=== PATIENT | female | born 1975 | race Caucasian/White ===

== ENCOUNTER 2017-11-20 11:11 | Emergency (ER) | payer MEDICARE, MEDICAID ==
[~2017-11-20] VITALS: Ht 157.5 cm; Wt 73.6 kg
[2017-11-20 11:40] VITALS: Ht 157.5 cm; Wt 73.6 kg
[2017-11-20] MEDS ORDERED: VOLTAREN75 MG PO (16:09)
[2017-11-20] MEDS ORDERED: VIBRAMYCIN 100100 MG PO (16:09)
[2017-11-20 16:38] VITALS: BP 128/75
== END 2017-11-20 16:39 | disposition home or self-care (01) ==
LOC: D.ER 11:11
DX: L03.313 Cellulitis of chest wall (principal); I10 Essential (primary) hypertension; F17.200 Nicotine dependence, unspecified, uncomplicated

== ENCOUNTER 2018-01-15 14:16 | Emergency (ER) | payer MEDICARE, MEDICAID ==
[~2018-01-15] VITALS: Ht 157.5 cm; Wt 81.8 kg
[~2018-01-15 14:16] MED LIST: VIBRAMYCIN 100100 MG PO; VOLTAREN75 MG PO
[2018-01-15 14:17] VITALS: Ht 157.5 cm; Wt 81.8 kg
[2018-01-15] MEDS ORDERED: ROBAXIN500 MG PO (18:38)
[2018-01-15] MEDS ORDERED: NAPROXEN SODIU550 M1 PO (18:38)
[2018-01-15 19:10] VITALS: BP 110/65
== END 2018-01-15 19:47 | disposition home or self-care (01) ==
LOC: D.ER 14:16
DX: S39.012A Strain of muscle, fascia and tendon of lower back, initial encounter (principal); W18.09XA Striking against other object with subsequent fall, initial encounter; Y93.89 Activity, other specified; Y92.019 Unspecified place in single-family (private) house as the place of occurrence of the external cause; S70.12XA Contusion of left thigh, initial encounter; S70.11XA Contusion of right thigh, initial encounter; F17.200 Nicotine dependence, unspecified, uncomplicated